=== PATIENT | female | born 1985 | race Caucasian/White ===

== ENCOUNTER 2017-10-27 16:28 | Emergency (ER) | payer SELFPAY ==
--- NOTE | 2017-10-27 18:11 | ER ---
Nurse's Notes [facility] Name: Vonda Sepulveda Age: 32 yrs Sex: Female : 1985 Arrival Date: 10/27/2017 Time: 16:32 Bed DIS2 Private MD: None, None Diagnosis: Pain in left wrist Presentation: 10/27 16:55 Presenting complaint: Patient states: " I'm not sure what I did to my wrist but it's ph been hurting for about 2 weeks." Denies known injury, reports pain in L wrist that radiates to elbow. Transition of care: patient was not received from another setting of care. Onset of symptoms was October 27, 2017. Initial Sepsis Screen: Does the patient meet any 2 criteria? No. Patient's initial sepsis screen is negative. Does the patient have a suspected source of infection? No. Patient's initial sepsis screen is negative. Care prior to arrival: None. 16:55 Method Of Arrival: Ambulatory ph 16:55 Acuity: KALIN 4 ph Historical: - Allergies: 16:57 Phenergan; ph - Home Meds: 16:57 None [Active]; ph - PMHx: 16:57 Seizures; ph - PSHx: 16:57 None; ph - Immunization history:: Adult Immunizations up to date. - Social history:: Smoking status: Patient uses tobacco products, smokes one-half pack cigarettes per day. Screenin:04 Abuse screen: Denies threats or abuse. Denies injuries from another. Nutritional ch screening: No deficits noted. Tuberculosis screening: No symptoms or risk factors identified. Fall Risk None identified. Assessment: 18:04 Pain: Complains of pain in left wrist and left hand Pain currently is 5 out of 10 on a ch pain scale. at worst was 8 out of 10 on a pain scale. Pain began gradually, two weeks ago. Respiratory: Airway is patent Respiratory effort is even, unlabored, Breath sounds are clear bilaterally. Derm: Skin is pink, warm \\T\\ dry. Vital Signs: 16:57 BP 121 / 74; Pulse 93; Resp 18; Temp 97.5; Pulse Ox 98% on R/A; Weight 80.74 kg; Height ph 5 ft. 2 in. (157.48 cm); Pain 6/10; 18:28 BP 118 / 74; Pulse 65; Resp 16; Temp 98.5; Pulse Ox 99% on R/A; Pain 6/10; ch 16:57 Body Mass Index 32.56 (80.74 kg, 157.48 cm) ph ED Course: 16:32 Patient arrived in ED. mr 16:33 None, None is Private Physician. mr 16:40 Cayla Vásquez FNP-C is [facility]. snw 16:40 Kirt Barton MD is Attending Physician. snw 16:56 Triage completed. ph 16:58 Arm band placed on. ph 17:51 Kandi March, RN is Primary Nurse. ch 18:04 No apparent distress. Resting quietly. ch 18:04 Patient has correct armband on for positive identification. Bed in low position. Call light in reach. 18:04 No provider procedures requiring assistance completed. Patient did not have IV access during this emergency room visit. Administered Medications: No medications were administered Outcome: 18:10 Discharge ordered by . snw 18:39 Patient left the ED. Signatures: Kandi March, RN RN Cayla Vásquez FNP-C FNP-Yelena Broussard mr BarronRody, BELLA RN
--- NOTE | 2017-10-27 18:11 | EDPHYS ---
Physician Documentation [facility] Name: Vonda Sepulveda Age: 32 yrs Sex: Female : 1985 Arrival Date: 10/27/2017 Time: 16:32 Bed DIS2 Private MD: None, None ED Physician Kirt Barton HPI: 10/27 18:08 This 32 yrs old Female presents to ER via Ambulatory with complaints of Wrist snw Pain. 18:08 The patient or guardian reports decreased range of motion, pain. The complaints affect snw the left wrist diffusely. Context: The problem was sustained at an unknown location, resulted from an unknown cause. Onset: The symptoms/episode began/occurred suddenly, 2 week(s) ago, and became persistent. Associated signs and symptoms: Pertinent positives:. Compartment Syndrome negative for. It is unknown whether or not the patient has had similar symptoms in the past. It is unknown whether or not the patient has recently seen a physician. using velcro wrist splint. Historical: - Allergies: 16:57 Phenergan; ph - Home Meds: 16:57 None [Active]; ph - PMHx: 16:57 Seizures; ph - PSHx: 16:57 None; ph - Immunization history:: Adult Immunizations up to date. - Social history:: Smoking status: Patient uses tobacco products, smokes one-half pack cigarettes per day. ROS: 18:01 Constitutional: Negative for fever, chills, and weight loss, Eyes: Negative for injury, snw pain, redness, and discharge, ENT: Negative for injury, pain, and discharge, Neck: Negative for injury, pain, and swelling, Cardiovascular: Negative for chest pain, palpitations, and edema, Respiratory: Negative for shortness of breath, cough, wheezing, and pleuritic chest pain, Abdomen/GI: Negative for abdominal pain, nausea, vomiting, diarrhea, and constipation, Back: Negative for injury and pain, Skin: Negative for injury, rash, and discoloration, Neuro: Negative for headache, weakness, numbness, tingling, and seizure. 18:01 MS/extremity: Positive for pain, paresthesias, of the dorsal aspect of left wrist. Exam: 18:00 Constitutional: This is a well developed, well nourished patient who is awake, alert, snw and in no acute distress. Head/Face: Normocephalic, atraumatic. Eyes: Pupils equal round and reactive to light, extra-ocular motions intact. Lids and lashes normal. Conjunctiva and sclera are non-icteric and not injected. Cornea within normal limits. Periorbital areas with no swelling, redness, or edema. ENT: Nares patent. No nasal discharge, no septal abnormalities noted. Tympanic membranes are normal and external auditory canals are clear. Oropharynx without swelling, or masses, exudates, or evidence of obstruction, uvula midline. Mucous membranes moist. Neck: Trachea midline, no thyromegaly or masses palpated, and no cervical lymphadenopathy. Supple, full range of motion without nuchal rigidity, or vertebral point tenderness. No Meningismus. Chest/axilla: Normal chest wall appearance and motion. Nontender with no deformity. No lesions are appreciated. Cardiovascular: Regular rate and rhythm with a normal S1 and S2. No gallops, murmurs, or rubs. Normal PMI, no JVD. No pulse deficits. Respiratory: Lungs have equal breath sounds bilaterally, clear to auscultation and percussion. No rales, rhonchi or wheezes noted. No increased work of breathing, no retractions or nasal flaring. Abdomen/GI: Soft, non-tender, with normal bowel sounds. No distension or tympany. No guarding or rebound. No evidence of tenderness throughout. Back: No spinal tenderness. No costovertebral tenderness. Full range of motion. Skin: Warm, dry with normal turgor. Normal color with no rashes, no lesions, and no evidence of cellulitis. MS/ Extremity: Pulses equal, no cyanosis. Neurovascular intact. Full, normal range of motion, tenderness on rotation of left wrist at [facility] Neuro: Awake and alert, GCS 15, oriented to person, place, time, and situation. Cranial nerves II-XII grossly intact. Motor strength 5/5 in all extremities. Sensory grossly intact. Cerebellar exam normal. Normal gait. Vital Signs: 16:57 BP 121 / 74; Pulse 93; Resp 18; Temp 97.5; Pulse Ox 98% on R/A; Weight 80.74 kg; Height ph 5 ft. 2 in. (157.48 cm); Pain 6/10; 18:28 BP 118 / 74; Pulse 65; Resp 16; Temp 98.5; Pulse Ox 99% on R/A; Pain 6/10; ch 16:57 Body Mass Index 32.56 (80.74 kg, 157.48 cm) ph MDM: 17:33 Patient medically screened. snw 18:56 Data reviewed: vital signs, nurses notes. Data interpreted: Pulse oximetry: on room air snw is 99 %. Interpretation: normal. Counseling: I had a detailed discussion with the patient and/or guardian regarding: the historical points, exam findings, and any diagnostic results supporting the discharge/admit diagnosis, lab results, the need for outpatient follow up, to return to the emergency department if symptoms worsen or persist or if there are any questions or concerns that arise at home. Special discussion: Based on the history and exam findings, there is no indication for further emergent testing or inpatient evaluation. I discussed with the patient/guardian the need to see the orthopedic surgeon for further evaluation of the symptoms. I discussed with the patient/guardian the need to see the primary care provider for further evaluation of the symptoms. Administered Medications: No medications were administered Disposition: 19:06 Co-signature as Attending Physician, Kirt Barton MD. rn Disposition: 10/27/17 18:10 Discharged to Home. Impression: Pain in left wrist. - Condition is Stable. - Discharge Instructions: Arthralgia, Cast or Splint Care, Musculoskeletal Pain, Wrist Pain. - Prescriptions for Diclofenac Sodium 75 mg Oral Tablet Sustained Release - take 1 tablet by ORAL route 2 times per day; 30 tablet. - Medication Reconciliation Form, Thank You Letter, Antibiotic Education, Prescription Opioid Use form. - Follow up: Private Physician; When: 2 - 3 days; Reason: Recheck today's complaints, Continuance of care, Re-evaluation by your physician. Follow up: Emergency Department; When: As needed; Reason: Worsening of condition. Signatures: Kandi March RN RN Cayla Zurita, SYSTEM ANALYST-C SYSTEM ANALYST-Csnw Kirt Barton MD MD rn Hall, Patricia, RN RN ph Corrections: (The following items were deleted from the chart) 18:08 18:00 Constitutional: This is a well developed, well nourished patient who is awake, snw alert, and in no acute distress. Head/Face: Normocephalic, atraumatic. Eyes: Pupils equal round and reactive to light, extra-ocular motions intact. Lids and lashes normal. Conjunctiva and sclera are non-icteric and not injected. Cornea within normal limits. Periorbital areas with no swelling, redness, or edema. ENT: Nares patent. No nasal discharge, no septal abnormalities noted. Tympanic membranes are normal and external auditory canals are clear. Oropharynx without swelling, or masses, exudates, or evidence of obstruction, uvula midline. Mucous membranes moist. Neck: Trachea midline, no thyromegaly or masses palpated, and no cervical lymphadenopathy. Supple, full range of motion without nuchal rigidity, or vertebral point tenderness. No Meningismus. Chest/axilla: Normal chest wall appearance and motion. Nontender with no deformity. No lesions are appreciated. Cardiovascular: Regular rate and rhythm with a normal S1 and S2. No gallops, murmurs, or rubs. Normal PMI, no JVD. No pulse deficits. Respiratory: Lungs have equal breath sounds bilaterally, clear to auscultation and percussion. No rales, rhonchi or wheezes noted. No increased work of breathing, no retractions or nasal flaring. Abdomen/GI: Soft, non-tender, with normal bowel sounds. No distension or tympany. No guarding or rebound. No evidence of tenderness throughout. Back: No spinal tenderness. No costovertebral tenderness. Full range of motion. Skin: Warm, dry with normal turgor. Normal color with no rashes, no lesions, and no evidence of cellulitis. MS/ Extremity: Pulses equal, no cyanosis. Neurovascular intact. Full, normal range of motion. Neuro: Awake and alert, GCS 15, oriented to person, place, time, and situation. Cranial nerves II-XII grossly intact. Motor strength 5/5 in all extremities. Sensory grossly intact. Cerebellar exam normal. Normal gait. snw 18:39 18:10 10/27/2017 18:10 Discharged to Home. Impression: Pain in left wrist. Condition is ch Stable. Forms are Medication Reconciliation Form, Thank You Letter, Antibiotic Education, Prescription Opioid Use. Follow up: Private Physician; When: 2 - 3 days; Reason: Recheck today's complaints, Continuance of care, Re-evaluation by your physician. Follow up: Emergency Department; When: As needed; Reason: Worsening of condition. snw
== END 2017-10-27 18:39 | disposition home or self-care (01) ==
LOC: ER 16:28
DX: M25.532 Pain in left wrist (principal); F17.210 Nicotine dependence, cigarettes, uncomplicated; Z88.8 Allergy status to other drugs, medicaments and biological substances
CPT/HCPCS: 99281

== ENCOUNTER 2017-11-11 02:42 | Emergency (ER) | payer SELFPAY ==
[2017-11-11] MEDS ORDERED: METOCLOPRAMIDE 10 MG/2mL INJ ONE (03:13)
[2017-11-11] MEDS ORDERED: NA CHLORIDE 0.9% 1,000 ML ONE (03:13)
[2017-11-11] MEDS ORDERED: MEPERIDINE HCL 25 MG/0.5 ML ONE (03:13)
[2017-11-11 03:30] LABS: Urine Blood NEGATIVE (NEG); Urine Glucose NEGATIVE (NEG); Urine Protein NEGATIVE (NEG); Urine Specific Gravity 1.015 (1.005-1.030); Urine pH 8.5 (5.0-7.0)
--- NOTE | 2017-11-11 04:50 | EDPHYS ---
Physician Documentation [facility] Name: Vonda Sepulveda Age: 32 yrs Sex: Female : 1985 Arrival Date: 11/11/2017 Time: 02:43 Bed 5 Private MD: None, None ED Physician Kirt Barton HPI: 11/11 04:44 This 32 yrs old Female presents to ER via Ambulatory with complaints of rn Headache, Vomiting. 04:44 The patient complains of pain to the forehead. The patient describes the headache as rn aching. Onset: The symptoms/episode began/occurred just prior to arrival. Associated signs and symptoms: Pertinent positives: Photophobia Pertinent negatives: fever, neck stiffness, rash, vision loss, weakness, vertigo. Severity of symptoms: At its worst the pain was the "worst in my life", in the emergency department the pain is unchanged. The patient has not experienced similar symptoms in the past. 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 No trauma. . 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 - Social history:: Smoking status: Patient uses tobacco products, smokes one pack cigarettes per day. - Ebola Screening: : Patient negative for fever greater than or equal to 101.5 degrees Fahrenheit, and additional compatible Ebola Virus Disease symptoms Patient denies exposure to infectious person Patient denies travel to an Ebola-affected area in the 21 days before illness onset. - Family history:: not pertinent. - Hospitalizations: : No recent hospitalization is reported. ROS: 04:45 Constitutional: Negative for fever, chills, and weight loss, Eyes: Negative for injury, rn pain, redness, and discharge, Neck: Negative for injury, pain, and swelling, Cardiovascular: Negative for chest pain, palpitations, and edema, Respiratory: Negative for shortness of breath, cough, wheezing, and pleuritic chest pain, Abdomen/GI: Negative for abdominal pain, diarrhea, and constipation, MS/Extremity: Negative for injury and deformity, Skin: Negative for injury, rash, and discoloration, Neuro: Negative for weakness, numbness, tingling, and seizure. Exam: 04:45 Constitutional: This is a well developed, well nourished patient who is awake, alert, rn and in no acute distress. Head/Face: Normocephalic, atraumatic. Eyes: Pupils equal round and reactive to light, extra-ocular motions intact. Lids and lashes normal. Conjunctiva and sclera are non-icteric and not injected. Cornea within normal limits. Periorbital areas with no swelling, redness, or edema. Neck: Trachea midline, no thyromegaly or masses palpated, and no cervical lymphadenopathy. Supple, full range of motion without nuchal rigidity, or vertebral point tenderness. No Meningismus. Cardiovascular: Regular rate and rhythm with a normal S1 and S2. No gallops, murmurs, or rubs. Normal PMI, no JVD. No pulse deficits. Respiratory: Lungs have equal breath sounds bilaterally, clear to auscultation and percussion. No rales, rhonchi or wheezes noted. No increased work of breathing, no retractions or nasal flaring. Abdomen/GI: Soft, non-tender, with normal bowel sounds. No distension or tympany. No guarding or rebound. No evidence of tenderness throughout. MS/ Extremity: Pulses equal, no cyanosis. Neurovascular intact. Full, normal range of motion. Equal circumference. Neuro: Awake and alert, GCS 15, oriented to person, place, time, and situation. Cranial nerves II-XII grossly intact. Motor strength 5/5 in all extremities. Sensory grossly intact. Cerebellar exam normal. Normal gait. Vital Signs: 02:59 BP 112 / 56; Pulse 74; Resp 18; Temp 97.2(TE); Pulse Ox 100% on R/A; Weight 80.74 kg fc (R); Height 5 ft. 2 in. (157.48 cm) (R); Pain 10/10; 04:04 BP 99 / 44; Pulse 85; Resp 18; Pulse Ox 100% on R/A; Pain 7/10; ak1 02:59 Body Mass Index 32.56 (80.74 kg, 157.48 cm) [place] Coma Score: 04:45 Eye Response: spontaneous(4). Verbal Response: oriented(5). Motor Response: obeys rn commands(6). Total: 15. MDM: 02:53 Patient medically screened. rn 04:45 Differential diagnosis: hypertensive headache, intracerebral hemorrhage, migraine, rn subarachnoid bleed, tension headache, vasomotor headache. Data reviewed: vital signs, nurses notes, lab test result(s), radiologic studies, CT scan, and as a result, I will discharge patient. Counseling: I had a detailed discussion with the patient and/or guardian regarding: the historical points, exam findings, and any diagnostic results supporting the discharge/admit diagnosis, lab results, radiology results, the need for outpatient follow up, to return to the emergency department if symptoms worsen or persist or if there are any questions or concerns that arise at home. Response to treatment: the patient's symptoms have markedly improved after treatment, sleeping comfortably, and as a result, I will discharge patient. Special discussion: I discussed with the patient/guardian in detail that at this point there is no indication for admission to the hospital. It is understood, however, that if the symptoms persist or worsen the patient needs to return immediately for re-evaluation. ED course: Pt sleeping comfortably, normal ct head within 2 hours of headache onset, no need for emergent LP, no neck stiffness, afebrile, patient asking to go home. . 11/11 03:24 Order name: Urine Dipstick--Ancillary (enter results); Complete Time: 03:49 11/11 03:24 Order name: Urine --Ancillary (enter results); Complete Time: 03:49 11/11 03:05 Order name: CT Head Brain wo Cont rn 11/11 03:05 Order name: Urine Test (obtain specimen); Complete Time: 03:21 rn 11/11 03:06 Order name: IV Start; Complete Time: 03:24 rn Administered Medications: 03:23 Drug: NS 0.9% 1000 ml Route: IV; Rate: 1000 ml; Site: right antecubital; ak1 04:58 Follow up: IV Status: Completed infusion ak1 03:23 Drug: Reglan 10 mg Route: IVP; Site: right antecubital; ak1 03:42 Follow up: Response: No adverse reaction ak1 03:23 Drug: Demerol 25 mg Route: IVP; Site: right antecubital; ak1 03:42 Follow up: Response: No adverse reaction ak1 Disposition: 11/11/17 04:49 Discharged to Home. Impression: Headache. - Condition is Stable. - Discharge Instructions: General Headache Without Cause. - Medication Reconciliation Form, Thank You Letter, Antibiotic Education, Prescription Opioid Use form. - Follow up: Private Physician; When: As needed; Reason: Recheck today's complaints, Re-evaluation by your physician. - Problem is new. - Symptoms have improved. Signatures: Dispatcher [employer] EDLA Hoa Villa RN RN fc Nieto, Roman, MD MD rn Krenek, Amber, RN RN ak1 Corrections: (The following items were deleted from the chart) 04:57 04:49 11/11/2017 04:49 Discharged to Home. Impression: Headache. Condition is Stable. ak1 Forms are Medication Reconciliation Form, Thank You Letter, Antibiotic Education, Prescription Opioid Use. Follow up: Private Physician; When: As needed; Reason: Recheck today's complaints, Re-evaluation by your physician. Problem is new. Symptoms have improved. rn
--- NOTE | 2017-11-11 04:50 | ER ---
Nurse's Notes [facility] Name: Vonda Sepulveda Age: 32 yrs Sex: Female : 1985 Arrival Date: 11/11/2017 Time: 02:43 Bed 5 Private MD: None, None Diagnosis: Headache Presentation: 11/11 02:59 Presenting complaint: Patient states: that 2 hrs ago she started to have headache, fc nausea and vomiting. Also having photophobia. Has had a headache like this before but it was after she had a spinal tap and needed a blood patch. Transition of care: patient was not received from another setting of care. Onset of symptoms was November 11, 2017 at 01:00. Risk Assessment: Do you want to hurt yourself or someone else? Patient reports no desire to harm self or others. Initial Sepsis Screen: Does the patient meet any 2 criteria? No. Patient's initial sepsis screen is negative. Does the patient have a suspected source of infection? No. Patient's initial sepsis screen is negative. Care prior to arrival: None. 02:59 Method Of Arrival: Ambulatory 02:59 Acuity: KALIN 3 fc Triage Assessment: 03:03 Headache History: The patient has had previous headaches and this one is similar to ak1 previous episodes. General: Appears uncomfortable, Behavior is cooperative, crying. Pain: Pain Pain began 2 hours ago. Also complains of nausea, photophobia. EENT: No signs and/or symptoms were reported regarding the EENT system. Neuro: Level of Consciousness is awake, alert, obeys commands, Oriented to person, place, time, situation, Moves all extremities. Gait is steady, Speech is normal. Cardiovascular: No deficits noted. Respiratory: No deficits noted. GI: Reports nausea, vomiting. : No signs and/or symptoms were reported regarding the genitourinary system. Derm: No signs and/or symptoms reported regarding the dermatologic system. Musculoskeletal: No signs and/or symptoms reported regarding the musculoskeletal system. 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 - Social history:: Smoking status: Patient uses tobacco products, smokes one pack cigarettes per day. - Ebola Screening: : Patient negative for fever greater than or equal to 101.5 degrees Fahrenheit, and additional compatible Ebola Virus Disease symptoms Patient denies exposure to infectious person Patient denies travel to an Ebola-affected area in the 21 days before illness onset. - Family history:: not pertinent. - Hospitalizations: : No recent hospitalization is reported. Screenin:02 Abuse screen: Denies threats or abuse. Nutritional screening: No deficits noted. fc Tuberculosis screening: No symptoms or risk factors identified. Fall Risk None identified. Assessment: 03:24 Reassessment: Patient appears in no apparent distress at this time. No changes from ak1 previously documented assessment. Patient is alert, oriented x 3, equal unlabored respirations, skin warm/dry/pink. Pain: Complains of pain in forehead, left base of the skull and right base of the skull. Neuro: Level of Consciousness is awake, alert, obeys commands, Oriented to person, place, time, Linseed Oil Boiler are equal bilaterally Moves all extremities. Gait is steady, Speech is normal, Facial symmetry appears normal. Cardiovascular: No deficits noted. Respiratory: No deficits noted. GI: No signs and/or symptoms were reported involving the gastrointestinal system. : No signs and/or symptoms were reported regarding the genitourinary system. EENT: No signs and/or symptoms were reported regarding the EENT system. Derm: No signs and/or symptoms reported regarding the dermatologic system. Musculoskeletal: No signs and/or symptoms reported regarding the musculoskeletal system. 04:04 Reassessment: Patient appears in no apparent distress at this time. No changes from ak1 previously documented assessment. Patient is alert, oriented x 3, equal unlabored respirations, skin warm/dry/pink. Patient states symptoms have not improved. Vital Signs: 02:59 BP 112 / 56; Pulse 74; Resp 18; Temp 97.2(TE); Pulse Ox 100% on R/A; Weight 80.74 kg fc (R); Height 5 ft. 2 in. (157.48 cm) (R); Pain 10/10; 04:04 BP 99 / 44; Pulse 85; Resp 18; Pulse Ox 100% on R/A; Pain 7/10; ak1 02:59 Body Mass Index 32.56 (80.74 kg, 157.48 cm) Park Coma Score: 04:45 Eye Response: spontaneous(4). Verbal Response: oriented(5). Motor Response: obeys rn commands(6). Total: 15. ED Course: 02:43 Patient arrived in ED. ds1 02:43 None, None is Private Physician. ds1 02:53 Kirt Barton MD is Attending Physician. rn 02:59 Arm band placed on Patient placed in an exam room, on a stretcher. 03:01 Triage completed. fc 03:02 Mattie Hickey RN is Primary Nurse. ak1 03:02 Patient has correct armband on for positive identification. Bed in low position. Call light in reach. Pulse ox on. NIBP on. 03:02 No provider procedures requiring assistance completed. 03:29 Urine collected: clean catch specimen. Inserted saline lock: 20 gauge in right ak1 antecubital area, using aseptic technique. Blood collected. 03:38 CT completed. Patient moved to CT via wheelchair. Patient moved back from CT. cw1 03:38 CT Head Brain wo Cont In Process Unspecified. EDMS 04:57 IV discontinued, intact, bleeding controlled, No redness/swelling at site. Pressure ak1 dressing applied. Administered Medications: 03:23 Drug: NS 0.9% 1000 ml Route: IV; Rate: 1000 ml; Site: right antecubital; ak1 04:58 Follow up: IV Status: Completed infusion ak1 03:23 Drug: Reglan 10 mg Route: IVP; Site: right antecubital; ak1 03:42 Follow up: Response: No adverse reaction ak1 03:23 Drug: Demerol 25 mg Route: IVP; Site: right antecubital; ak1 03:42 Follow up: Response: No adverse reaction ak1 Outcome: 04:42 Discharged to home ambulatory, with family. ak1 04:42 Condition: improved 04:42 Discharge instructions given to patient, Instructed on discharge instructions, follow up and referral plans. Demonstrated understanding of instructions, follow-up care. 04:49 Discharge ordered by . rn 04:57 Patient left the ED. ak1 Signatures: Dispatcher [employer] EDIL Hoa Villa RN RN fc Sanford, Demi [facility] Kirt Barton MD MD rn Woodley, Crystal 1 Ruperto, Mattie, RN RN ak1
--- NOTE | 2017-11-11 09:23 | RAD REPORT ---
EXAM DESCRIPTION: CT - Head Brain Wo Cont - 11/11/2017 6:16 am CLINICAL HISTORY: Headache COMPARISON: None. TECHNIQUE: Computed axial tomography of the head was obtained. IV contrast was not requested. A preliminary report was generated by [email or web address] and reviewed prior to this dictation All CT scans are performed using dose optimization technique as appropriate and may include automated exposure control or mA/KV adjustment according to patient size. FINDINGS: An intracranial bleed is not seen . The ventricles are normal in caliber. No extra-axial fluid collection is noted. Fluid within the sinuses/ mastoids is not seen. IMPRESSION: No acute intracranial abnormality is seen. If patient's symptoms persist MRI of the bra in would be recommended.
== END 2017-11-11 04:57 | disposition home or self-care (01) ==
LOC: ER 02:42
DX: R51 Headache (principal); Z86.73 Personal history of transient ischemic attack (TIA), and cerebral infarction without residual deficits; F17.210 Nicotine dependence, cigarettes, uncomplicated; Z88.8 Allergy status to other drugs, medicaments and biological substances
CPT/HCPCS: 70450; 81003; 81025; 96361; 96374; 96375; 99284; J2175; J2765; J7030

== ENCOUNTER 2017-12-08 23:39 | Emergency (ER) | payer SELFPAY ==
[2017-12-09] MEDS ORDERED: KETOROLAC 30 MG/ML INJ ONE (00:35)
[2017-12-09 00:46] LABS: Urine Blood NEGATIVE (NEG); Urine Glucose NEGATIVE (NEG); Urine Protein NEGATIVE (NEG); Urine Specific Gravity 1.015 (1.005-1.030); Urine pH 7.5 (5.0-7.0)
[2017-12-09 00:55] LABS: Urine Bacteria <20 /HPF (<20); Urine Culture Reflex Order NOT NEEDED; Urine RBC NONE SEEN /HPF (NONE SEEN)
[2017-12-09] MEDS ORDERED: NA CHLORIDE 0.9% 1,000 ML ONE (01:51)
[2017-12-09] MEDS ORDERED: MORPHINE 4 MG/ML SYR ONE (01:51)
[2017-12-09 02:03] LABS: Absolute Lymphocytes (CBC) 3.7 K/uL (0.7-4.9); Absolute Monocytes 0.4 K/uL (0.1-1.3); Absolute Neutrophil 4.5 K/uL (1.8-8.0); Basophils % 1.1 % (0-1.3); Eosinophils % 4.7 % (0-4.4); Hematocrit 38.8 % (36.0-45.0); Lymphocytes % 40.6 % (15.3-44.8); MCH 30.3 pg (27.0-35.0); MCV 89.8 fL (80-100); Monocytes % 4.7 % (3.3-12.3); RBC Red Blood Cell Count 4.32 M/uL (3.86-4.86)
[2017-12-09 02:21] LABS: ALT/SGPT 16 U/L (12-78); AST/SGOT 12 U/L (15-37); Albumin 3.5 g/dL (3.4-5.0); Alkaline Phosphatase 98 U/L (45-117); BUN Blood Urea Nitrogen 6 mg/dL (7-18); Bicarbonate 28 mmol/L (21-32); Bilirubin Direct < 0.1 mg/dL (0-0.2); Bilirubin Total 0.2 mg/dL (0.2-1.0); Glucose Level 87 mg/dL (74-106); Lipase 83 U/L (73-393); Potassium 3.9 mmol/L (3.5-5.1); Protein, Total 6.8 g/dL (6.4-8.2); Sodium Level 143 mmol/L (136-145)
--- NOTE | 2017-12-09 03:15 | EDPHYS ---
Physician Documentation [facility] Name: Vonda Seuplveda Age: 32 yrs Sex: Female : 1985 Arrival Date: 12/08/2017 Time: 23:42 Bed 16 Private MD: ED Physician Kirt Barton HPI: 12/09 01:16 This 32 yrs old Female presents to ER via Ambulatory with complaints of snw Abdominal Pain, Nausea. 01:16 The patient presents with abdominal pain in the left lower quadrant. Onset: The snw symptoms/episode began/occurred gradually, 3 day(s) ago, and became persistent. The symptoms radiate to the left flank. Associated signs and symptoms: Pertinent positives: nausea. The symptoms are described as stabbing, steady. Severity of pain: At its worst the pain was moderate severe. The patient has not experienced similar symptoms in the past. The patient has not recently seen a physician. hx of seizures, last was about 2 months ago. 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 - Social history:: Smoking status: Patient uses tobacco products, smokes one pack cigarettes per day. - Ebola Screening: : Patient negative for fever greater than or equal to 101.5 degrees Fahrenheit, and additional compatible Ebola Virus Disease symptoms Patient denies exposure to infectious person Patient denies travel to an Ebola-affected area in the 21 days before illness onset No symptoms or risks identified at this time. ROS: 01:16 Constitutional: Negative for fever, chills, and weight loss, Eyes: Negative for injury, snw pain, redness, and discharge, ENT: Negative for injury, pain, and discharge, Neck: Negative for injury, pain, and swelling, Cardiovascular: Negative for chest pain, palpitations, and edema, Respiratory: Negative for shortness of breath, cough, wheezing, and pleuritic chest pain, Abdomen/GI: Negative for abdominal pain, nausea, vomiting, diarrhea, and constipation, Back: Negative for injury and pain, : Negative for injury, bleeding, discharge, and swelling, Skin: Negative for injury, rash, and discoloration, Neuro: Negative for headache, weakness, numbness, tingling, and seizure. 01:16 MS/extremity: Positive for pain, of the left lower quadrant. Exam: 01:12 Constitutional: This is a well developed, well nourished patient who is awake, alert, snw and in no acute distress. Head/Face: Normocephalic, atraumatic. Eyes: Pupils equal round and reactive to light, extra-ocular motions intact. Lids and lashes normal. Conjunctiva and sclera are non-icteric and not injected. Cornea within normal limits. Periorbital areas with no swelling, redness, or edema. ENT: Nares patent. No nasal discharge, no septal abnormalities noted. Tympanic membranes are normal and external auditory canals are clear. Oropharynx with no redness, swelling, or masses, exudates, or evidence of obstruction, uvula midline. Mucous membranes moist. Neck: Trachea midline, no thyromegaly or masses palpated, and no cervical lymphadenopathy. Supple, full range of motion without nuchal rigidity, or vertebral point tenderness. No Meningismus. Chest/axilla: Normal chest wall appearance and motion. Nontender with no deformity. No lesions are appreciated. Cardiovascular: Regular rate and rhythm with a normal S1 and S2. No gallops, murmurs, or rubs. Normal PMI, no JVD. No pulse deficits. Respiratory: Lungs have equal breath sounds bilaterally, clear to auscultation and percussion. No rales, rhonchi or wheezes noted. No increased work of breathing, no retractions or nasal flaring. Back: No spinal tenderness. No costovertebral tenderness. Full range of motion. Skin: Warm, dry with normal turgor. Normal color with no rashes, no lesions, and no evidence of cellulitis. MS/ Extremity: Pulses equal, no cyanosis. Neurovascular intact. Full, normal range of motion. Neuro: Awake and alert, GCS 15, oriented to person, place, time, and situation. Cranial nerves II-XII grossly intact. Motor strength 5/5 in all extremities. Sensory grossly intact. Cerebellar exam normal. Normal gait. 01:12 Abdomen/GI: Inspection: abdomen appears normal, Bowel sounds: normal, Palpation: moderate abdominal tenderness, in the posterior aspect of left lateral abdomen and left lower quadrant. Vital Signs: 00:05 BP 108 / 51; Pulse 77; Resp 18; Temp 98.6; Pulse Ox 99% ; Weight 77.11 kg; Height 5 ft. bp 2 in. (157.48 cm); 00:44 BP 101 / 58; Pulse 63; Resp 18; Pulse Ox 98% on R/A; aa1 01:36 BP 97 / 41; Pulse 60; Resp 16; Pulse Ox 100% on R/A; aa1 02:42 BP 90 / 57; Pulse 60; Resp 16; Pulse Ox 98% on R/A; aa1 03:14 BP 92 / 55; Pulse 58; Resp 16; Pulse Ox 99% on R/A; rv 00:05 Body Mass Index 31.09 (77.11 kg, 157.48 cm) bp MDM: 12/08 23:49 Patient medically screened. snw 12/09 03:15 Data reviewed: vital signs, nurses notes. Data interpreted: Pulse oximetry: on room air snw is 98 %. Interpretation: normal. Counseling: I had a detailed discussion with the patient and/or guardian regarding: the historical points, exam findings, and any diagnostic results supporting the discharge/admit diagnosis, lab results, radiology results, the need for outpatient follow up, to return to the emergency department if symptoms worsen or persist or if there are any questions or concerns that arise at home. Special discussion: Based on the patient's Hx, exam, and Dx evaluation, there is no indication for emergent surgery or inpatient Tx. It is understood by the patient/guardian that if the Sx's persist or worsen they need to return immediately for re-evaluation. Based on the history and exam findings, there is no indication for further emergent testing or inpatient evaluation. 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 I discussed with the patient/guardian the need to see the primary care provider for further evaluation of the symptoms. 12/08 23:48 Order name: Urine Culture sn 12/08 23:48 Order name: Urine Microscopic Only; Complete Time: 01:06 snw 12/08 23:49 Order name: Urine Culture EDCA 12/09 00:14 Order name: Urine Dipstick--Ancillary (enter results); Complete Time: 00:50 ms 12/09 00:14 Order name: Urine --Ancillary (enter results); Complete Time: 00:50 ms 12/09 01:43 Order name: Basic Metabolic Panel snw 12/09 00:30 Order name: CT Stone Protocol snw 12/09 01:43 Order name: CBC with Diff snw 12/09 01:43 Order name: Hepatic Function snw 12/09 01:43 Order name: Lipase snw 12/09 01:44 Order name: Basic Metabolic Panel; Complete Time: 02:21 EDMS 12/09 01:44 Order name: CBC with Automated Diff; Complete Time: 02:08 EDMS 12/09 01:44 Order name: Liver (Hepatic) Function; Complete Time: 02:21 EDMS 12/09 01:44 Order name: Lipase; Complete Time: 02:21 EDMS 12/08 23:48 Order name: Urine Test (obtain specimen); Complete Time: 00:12 snw 12/08 23:48 Order name: Urine Dipstick-Ancillary (obtain specimen); Complete Time: 00:12 snw 12/09 01:43 Order name: IV Saline Lock; Complete Time: 01:53 snw 12/09 01:43 Order name: Labs collected and sent; Complete Time: 01:53 snw Administered Medications: 00:37 Drug: TORadol 60 mg Route: IM; Site: left deltoid; rv 01:07 Follow up: Response: No adverse reaction rv 01:53 Drug: NS 0.9% 1000 ml Route: IV; Rate: 1 bolus; Site: left antecubital; rv 01:53 Drug: morphine 4 mg Route: IVP; Site: left antecubital; rv 02:42 Follow up: Response: No adverse reaction; Pain is decreased rv Disposition: 06:47 Co-signature as Attending Physician, Kirt Barton MD. rn Disposition: 12/09/17 03:14 Discharged to Home. Impression: Muscle spasm of back, Lower abdominal pain, unspecified. - Condition is Stable. - Discharge Instructions: Muscle Cramps and Spasms, Pain Without a Known Cause, Abdominal Pain, Women, Back Exercises, [id number], Heat Therapy. - Prescriptions for Diclofenac Sodium 75 mg Oral Tablet Sustained Release - take 1 tablet by ORAL route 2 times per day; 30 tablet. orphenadrine citrate 100 mg Oral Tablet Sustained Release - take 1 tablet by ORAL route 2 times per day As needed; 20 tablet. - Medication Reconciliation Form, Thank You Letter, Antibiotic Education, Prescription Opioid Use, Family Work Release form. - Follow up: Private Physician; When: 2 - 3 days; Reason: Recheck today's complaints, Continuance of care, Re-evaluation by your physician. Follow up: Emergency Department; When: As needed; Reason: Worsening of condition. Signatures: Dispatcher [employer] EDCA Cayla Vásquez, RADIO PRESENTER-C RADIO PRESENTER-Csnw Kirt Barton MD MD rn Peltier, Brian, RN RN Jayy Jones RN RN rv Corrections: (The following items were deleted from the chart) 03:26 03:14 12/09/2017 03:14 Discharged to Home. Impression: Muscle spasm of back; Lower rv abdominal pain, unspecified. Condition is Stable. Forms are Medication Reconciliation Form, Thank You Letter, Antibiotic Education, Prescription Opioid Use. Follow up: Private Physician; When: 2 - 3 days; Reason: Recheck today's complaints, Continuance of care, Re-evaluation by your physician. Follow up: Emergency Department; When: As needed; Reason: Worsening of condition. snw
--- NOTE | 2017-12-09 03:15 | ER ---
Nurse's Notes [facility] Name: Vonda Sepulveda Age: 32 yrs Sex: Female : 1985 Arrival Date: 12/08/2017 Time: 23:42 Bed 16 Private MD: Diagnosis: Muscle spasm of back;Lower abdominal pain, unspecified Presentation: 12/09 00:02 Presenting complaint: Patient states: LEFT ABD PAIN RADIATING TO LEFT FLANK. Transition bp of care: patient was not received from another setting of care. Onset of symptoms was December 06, 2017. Risk Assessment: Do you want to hurt yourself or someone else? Patient reports no desire to harm self or others. Initial Sepsis Screen: Does the patient meet any 2 criteria? No. Patient's initial sepsis screen is negative. Does the patient have a suspected source of infection? No. Patient's initial sepsis screen is negative. Care prior to arrival: None. 00:02 Method Of Arrival: Ambulatory bp 00:02 Acuity: KALIN 3 bp Triage Assessment: 00:04 General: Appears distressed, uncomfortable, Behavior is cooperative, appropriate for bp age, anxious. Pain: Complains of pain in anterior aspect of left lateral abdomen. EENT: No signs and/or symptoms were reported regarding the EENT system. Neuro: Level of Consciousness is awake, alert, obeys commands, Oriented to person, place, time, situation, Appropriate for age. Cardiovascular: No deficits noted. Respiratory: Airway is patent Respiratory effort is even, unlabored, Respiratory pattern is regular, symmetrical. GI: No signs and/or symptoms were reported involving the gastrointestinal system. : Reports urinary frequency. Derm: No deficits noted. Musculoskeletal: Circulation, motion, and sensation intact. Range of motion: intact in all extremities. 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 - Social history:: Smoking status: Patient uses tobacco products, smokes one pack cigarettes per day. - Ebola Screening: : Patient negative for fever greater than or equal to 101.5 degrees Fahrenheit, and additional compatible Ebola Virus Disease symptoms Patient denies exposure to infectious person Patient denies travel to an Ebola-affected area in the 21 days before illness onset No symptoms or risks identified at this time. Screenin:06 Abuse screen: Denies threats or abuse. Denies injuries from another. Nutritional bp screening: No deficits noted. Tuberculosis screening: No symptoms or risk factors identified. Fall Risk None identified. Assessment: 00:06 General: 32YO WF P/W LLQ PAIN RADIATING TO LEFT FLANK WITH POLYURIA x3 DAYS. bp 00:44 Reassessment: Patient appears in no apparent distress at this time. Patient and/or aa1 family updated on plan of care and expected duration. Pain level reassessed. Patient is alert, oriented x 3, equal unlabored respirations, skin warm/dry/pink. Awaiting CT scan. 02:42 Reassessment: Patient appears in no apparent distress at this time. Patient and/or aa1 family updated on plan of care and expected duration. Pain level reassessed. Patient is alert, oriented x 3, equal unlabored respirations, skin warm/dry/pink. Awaiting CT results. 03:25 GI: Bowel sounds present X 4 quads. Abd is soft and non tender X 4 quads. rv Vital Signs: 00:05 BP 108 / 51; Pulse 77; Resp 18; Temp 98.6; Pulse Ox 99% ; Weight 77.11 kg; Height 5 ft. bp 2 in. (157.48 cm); 00:44 BP 101 / 58; Pulse 63; Resp 18; Pulse Ox 98% on R/A; aa1 01:36 BP 97 / 41; Pulse 60; Resp 16; Pulse Ox 100% on R/A; aa1 02:42 BP 90 / 57; Pulse 60; Resp 16; Pulse Ox 98% on R/A; aa1 03:14 BP 92 / 55; Pulse 58; Resp 16; Pulse Ox 99% on R/A; rv 00:05 Body Mass Index 31.09 (77.11 kg, 157.48 cm) bp ED Course: 12/08 23:42 Patient arrived in ED. al2 23:49 [facility]C [facility] snw 23:49 Kirt Barton MD is Attending Physician. snw 12/09 00:02 Frank Perez, RN is Primary Nurse. bp 00:03 Triage completed. bp 00:05 Arm band placed on. bp 00:05 Urine collected: clean catch specimen, clear. aa1 00:06 Patient has correct armband on for positive identification. Bed in low position. Call bp light in reach. Side rails up X2. Adult w/ patient. 00:36 Radiology exam delayed due to test not completed at this time. eh 01:09 CT Stone Protocol In Process Unspecified. EDMS 03:25 No provider procedures requiring assistance completed. IV discontinued, bleeding rv controlled, No redness/swelling at site. Pressure dressing applied. Administered Medications: 00:37 Drug: TORadol 60 mg Route: IM; Site: left deltoid; rv 01:07 Follow up: Response: No adverse reaction rv 01:53 Drug: NS 0.9% 1000 ml Route: IV; Rate: 1 bolus; Site: left antecubital; rv 01:53 Drug: morphine 4 mg Route: IVP; Site: left antecubital; rv 02:42 Follow up: Response: No adverse reaction; Pain is decreased rv Outcome: 03:14 Discharge ordered by MD. underwood 03:25 Discharged to home ambulatory. rv 03:25 Condition: improved 03:25 Discharge instructions given to patient, Instructed on discharge instructions, medication usage. 03:26 Patient left the ED. rv Signatures: Dispatcher [employer] EDMS Rosa Klein, RN RN aa1 Cayla Vásquez, GLOBAL RECRUITER-C GLOBAL RECRUITER-Eddiew Kenan Bond Brian, Brook Hidalgo RN, Ronaldo, RN RN rv
--- NOTE | 2017-12-09 07:53 | RAD REPORT ---
EXAM DESCRIPTION: CT - Stone Protocol - 12/09/2017 6:07 am CLINICAL HISTORY: Abdominal pain. Left flank pain. Surgery 6+ months COMPARISON: None. TECHNIQUE: Computed axial tomography of the abdomen pelvis was obtained without oral or IV contrast. Lack of IV and oral contrast limits evaluation of solid organs, bowel, and vessels. Coronal reformat ramona images were obtained and reviewed. A preliminary report was generated by [employer] and reviewed prior to this dictation All CT scans are performed using dose optimization technique as appropriate and may include automated exposure control or mA/KV adjustment according to patient size. FINDINGS: A 5 millimeter subpleural right middle lobe nodule is present. Image 4. A renal calculus is not seen. An ureteral calculus is not noted. A bladder calculus is not present. The liver, pancreas and adrenals appear grossly normal. Splenic granulomata are present There is no evidence of diverticulitis. The appendix appears normal. A tiny umbilical hernia is seen. Minimal amount of free fluid probably is physiologic IMPRESSION: Negative for a genitourinary calculus 5 millimeter right middle lobe nodule. If patient is high risk per Fleischner guidelines followup CT chest in 12 months is recommended
== END 2017-12-09 03:26 | disposition home or self-care (01) ==
LOC: ER 23:39
DX: M62.830 Muscle spasm of back (principal); F17.210 Nicotine dependence, cigarettes, uncomplicated; Z88.8 Allergy status to other drugs, medicaments and biological substances
CPT/HCPCS: 36415; 74176; 76377; 80048; 80076; 81003; 81015; 81025; 83690; 85025; 87086; 87088; 96372; 96374; 99284; J7030

== ENCOUNTER 2018-01-30 19:13 | Emergency (ER) | payer SELFPAY ==
--- NOTE | 2018-01-30 19:45 | EDPHYS ---
Physician Documentation [facility] Name: Vonda Sepulveda Age: 32 yrs Sex: Female : 1985 Arrival Date: 01/30/2018 Time: 19:17 Bed 23 Private MD: ED Physician Froy Norwood HPI: 01/30 19:38 This 32 yrs old Female presents to ER via Ambulatory with complaints of Back pkl Pain. 19:38 The patient presents with pain that is acute. The symptoms are located in the right pkl lower back. Onset: The symptoms/episode began/occurred 3 day(s) ago. The pain does not radiate. The problem was sustained when lifting furniture. 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 - Social history:: Smoking status: Patient uses tobacco products, smokes one-half pack cigarettes per day. - Ebola Screening: : Patient negative for fever greater than or equal to 101.5 degrees Fahrenheit, and additional compatible Ebola Virus Disease symptoms Patient denies exposure to infectious person Patient denies travel to an Ebola-affected area in the 21 days before illness onset No symptoms or risks identified at this time. ROS: 19:38 Eyes: Negative for injury, pain, redness, and discharge, ENT: Negative for injury, pkl pain, and discharge, Neck: Negative for injury, pain, and swelling, Cardiovascular: Negative for chest pain, palpitations, and edema, Respiratory: Negative for shortness of breath, cough, wheezing, and pleuritic chest pain, Abdomen/GI: Negative for abdominal pain, nausea, vomiting, diarrhea, and constipation. 19:38 Back: Positive for pain with movement, of the right low back. 19:38 : Negative for urinary symptoms. 19:38 MS/extremity: Negative for acute changes. 19:38 Skin: Negative for rash. 19:38 Neuro: Negative for altered mental status. Exam: 19:38 Head/Face: Normocephalic, atraumatic. Eyes: Pupils equal round and reactive to light, pkl extra-ocular motions intact. Lids and lashes normal. Conjunctiva and sclera are non-icteric and not injected. Cornea within normal limits. Periorbital areas with no swelling, redness, or edema. ENT: Nares patent. No nasal discharge, no septal abnormalities noted. Tympanic membranes are normal and external auditory canals are clear. Oropharynx with no redness, swelling, or masses, exudates, or evidence of obstruction, uvula midline. Mucous membranes moist. Neck: Trachea midline, no thyromegaly or masses palpated, and no cervical lymphadenopathy. Supple, full range of motion without nuchal rigidity, or vertebral point tenderness. No Meningismus. Chest/axilla: Normal chest wall appearance and motion. Nontender with no deformity. No lesions are appreciated. Cardiovascular: Regular rate and rhythm with a normal S1 and S2. No gallops, murmurs, or rubs. Normal PMI, no JVD. No pulse deficits. Respiratory: Lungs have equal breath sounds bilaterally, clear to auscultation and percussion. No rales, rhonchi or wheezes noted. No increased work of breathing, no retractions or nasal flaring. Abdomen/GI: Soft, non-tender, with normal bowel sounds. No distension or tympany. No guarding or rebound. No evidence of tenderness throughout. 19:38 Back: pain, that is moderate, of the right low back, Straight leg raises: right lower extremity illicits pain, at 30 degrees. 19:38 : Exam negative for acute changes. 19:38 Musculoskeletal/extremity: Exam is negative for acute changes. 19:38 Skin: Exam negative for rash. 19:38 Neuro: Orientation: is normal, Mentation: is normal, Cranial nerves: grossly normal, Motor: is normal. Vital Signs: 19:21 BP 116 / 48; Pulse 71; Resp 17; Temp 97.9; Pulse Ox 100% on R/A; Weight 77.11 kg; aj Height 5 ft. 2 in. (157.48 cm); 19:40 BP 111 / 59; Pulse 70; Resp 18; Pulse Ox 100% on R/A; tl3 19:21 Body Mass Index 31.09 (77.11 kg, 157.48 cm) aj MDM: 19:24 Patient medically screened. pk 19:43 Data reviewed: vital signs, nurses notes. [facility] 01/30 19:54 Order name: Urine Dipstick--Ancillary (enter results) rg2 01/30 19:54 Order name: Urine --Ancillary (enter results) rg2 01/30 19:54 Order name: Urine Dipstick-Ancillary; Complete Time: 21:35 EDMS 01/30 19:54 Order name: Urine --Ancillary; Complete Time: 21:35 EDMS Administered Medications: 19:50 Drug: TORadol 60 mg Route: IM; Site: right gluteus; mg2 19:59 Follow up: Response: Medication administered at discharge. tl3 Disposition: 01/30/18 19:44 Discharged to Home. Impression: Acute low back strain. Possible prolapsed intervertebral disc. - Condition is Stable. - Prescriptions for Ultracet 37.5- 325 mg Oral Tablet - take 1 tablet by ORAL route every 8 hours - for up to 5 days; do not exceed 8 tablets per day.; 20 tablet. - Medication Reconciliation Form, Thank You Letter, Antibiotic Education, Prescription Opioid Use form. - Follow up: Private Physician; When: 2 - 3 days; Reason: Re-evaluation by your physician. - Problem is new. - Symptoms are unchanged. Signatures: Dispatcher [employer] [facility] Abbey Cardenas RN Froy Blackwell MD MD pkl Wanda Dash RN RN tl3 Kendall Amador RN RN mg2 Corrections: (The following items were deleted from the chart) 19:59 19:44 01/30/2018 19:44 Discharged to Home. Impression: Acute low back strain. Possible tl3 prolapsed intervertebral disc. Condition is Stable. Forms are Medication Reconciliation Form, Thank You Letter, Antibiotic Education, Prescription Opioid Use. Follow up: Private Physician; When: 2 - 3 days; Reason: Re-evaluation by your physician. Problem is new. Symptoms are unchanged. pkl
--- NOTE | 2018-01-30 19:45 | ER ---
Nurse's Notes [facility] Name: Vonda Sepulveda Age: 32 yrs Sex: Female : 1985 Arrival Date: 01/30/2018 Time: 19:17 Bed 23 Private MD: Diagnosis: Acute low back strain. Possible prolapsed intervertebral disc Presentation: 01/30 19:20 Presenting complaint: Patient states: Pain to right lower back for 3 days after moving. aj Ambulated to triage with slow gait. Transition of care: patient was not received from another setting of care. Onset of symptoms was January 28, 2018. Risk Assessment: Do you want to hurt yourself or someone else? Patient reports no desire to harm self or others. Initial Sepsis Screen: Does the patient meet any 2 criteria? No. Patient's initial sepsis screen is negative. Does the patient have a suspected source of infection? No. Patient's initial sepsis screen is negative. Care prior to arrival: None. 19:20 Method Of Arrival: Ambulatory 19:20 Acuity: KALIN 4 aj Triage Assessment: 19:21 General: Appears in no apparent distress. uncomfortable, Behavior is calm, cooperative, aj appropriate for age. Pain: Complains of pain in right low back. Neuro: Level of Consciousness is awake, alert, obeys commands, Oriented to person, place, time, situation, Appropriate for age. Respiratory: Airway is patent Respiratory effort is even, unlabored, Respiratory pattern is regular, symmetrical. Derm: Skin is intact, is healthy with good turgor, Skin is pink, warm \T\ dry. normal. Musculoskeletal: Range of motion: intact in all extremities, Reports pain in right low back. 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 - Social history:: Smoking status: Patient uses tobacco products, smokes one-half pack cigarettes per day. - Ebola Screening: : Patient negative for fever greater than or equal to 101.5 degrees Fahrenheit, and additional compatible Ebola Virus Disease symptoms Patient denies exposure to infectious person Patient denies travel to an Ebola-affected area in the 21 days before illness onset No symptoms or risks identified at this time. Screenin:40 Abuse screen: Denies threats or abuse. Nutritional screening: No deficits noted. tl3 Tuberculosis screening: No symptoms or risk factors identified. Fall Risk None identified. Assessment: 19:40 General: Appears uncomfortable, well groomed, well developed, well nourished, Behavior tl3 is calm, cooperative, appropriate for age. Pain: Complains of pain in back and right low back Pain currently is 8 out of 10 on a pain scale. Neuro: Level of Consciousness is awake, alert, obeys commands, Oriented to person, place, time, situation, Appropriate for age. Cardiovascular: Patient's skin is warm and dry. Respiratory: Airway is patent Respiratory effort is even, unlabored, Respiratory pattern is regular, symmetrical. GI: : No signs and/or symptoms were reported regarding the genitourinary system. EENT: No signs and/or symptoms were reported regarding the EENT system. Derm: No signs and/or symptoms reported regarding the dermatologic system. Musculoskeletal: Reports pain in back and right low back since three days ago, pt was doing some heavy lifting. Vital Signs: 19:21 BP 116 / 48; Pulse 71; Resp 17; Temp 97.9; Pulse Ox 100% on R/A; Weight 77.11 kg; aj Height 5 ft. 2 in. (157.48 cm); 19:40 BP 111 / 59; Pulse 70; Resp 18; Pulse Ox 100% on R/A; tl3 19:21 Body Mass Index 31.09 (77.11 kg, 157.48 cm) aj ED Course: 19:17 Patient arrived in ED. al2 19:20 Triage completed. aj 19:21 Arm band placed on left wrist. Patient placed in an exam room. aj 19:24 Froy Norwood MD is Attending Physician. pkl 19:40 Wanda Dash, RN is Primary Nurse. tl3 19:40 Patient has correct armband on for positive identification. tl3 19:40 initial assessment. tl3 19:52 Urine collected: clean catch specimen, clear, Amount Voided: 30mL. Patient did not have tl3 IV access during this emergency room visit. 19:59 Urine --Ancillary (enter results) Sent. tl3 19:59 Urine Dipstick--Ancillary (enter results) Sent. tl3 Administered Medications: 19:50 Drug: TORadol 60 mg Route: IM; Site: right gluteus; mg2 19:59 Follow up: Response: Medication administered at discharge. tl3 Outcome: 19:44 Discharge ordered by . pkl 19:58 Discharged to home ambulatory. tl3 19:58 Condition: stable 19:58 Discharge instructions given to patient, Instructed on discharge instructions, follow up and referral plans. Demonstrated understanding of instructions, follow-up care, medications, Prescriptions given X 1. 19:59 Patient left the ED. tl3 Signatures: Abbey Cardenas, RN RN Froy Arguelles MD MD pkl Brook Milner Tammy, RN RN tl3 Kendall Amador RN RN mg2
[2018-01-30] MEDS ORDERED: KETOROLAC 30 MG/ML INJ ONE (19:52)
[2018-01-30 19:56] LABS: Urine Blood NEGATIVE (NEG); Urine Glucose NEGATIVE (NEG); Urine Protein NEGATIVE (NEG)
== END 2018-01-30 19:59 | disposition home or self-care (01) ==
LOC: ER 19:13
DX: S39.012A Strain of muscle, fascia and tendon of lower back, initial encounter (principal); X50.0XXA Overexertion from strenuous movement or load, initial encounter; Y93.89 Activity, other specified; Y92.019 Unspecified place in single-family (private) house as the place of occurrence of the external cause; Z88.8 Allergy status to other drugs, medicaments and biological substances; F17.210 Nicotine dependence, cigarettes, uncomplicated; Z86.73 Personal history of transient ischemic attack (TIA), and cerebral infarction without residual deficits; R51 Headache; R56.9 Unspecified convulsions
CPT/HCPCS: 81003; 81025; 96372; 99283

== ENCOUNTER 2018-03-16 21:30 | Emergency (ER) | payer SELFPAY ==
[2018-03-16] MEDS ORDERED: KETOROLAC 30 MG/ML INJ ONE (22:48)
[2018-03-16] MEDS ORDERED: NA CHLORIDE 0.9% 1,000 ML ONE (22:48)
[2018-03-16] MEDS ORDERED: DIPHENHYDRAMINE 25 MG TAB/CAP ONE (22:48)
[2018-03-16] MEDS ORDERED: METOCLOPRAMIDE 10 MG/2mL INJ ONE (22:49)
[2018-03-16 22:58] LABS: Urine Blood TRACE (NEG); Urine Glucose NEGATIVE (NEG); Urine Protein NEGATIVE (NEG)
--- NOTE | 2018-03-16 23:07 | EDPHYS ---
Physician Documentation [facility] Name: Vonda Sepulveda Age: 32 yrs Sex: Female : 1985 Arrival Date: 03/16/2018 Time: 21:30 Bed 26 Private MD: ED Physician Jose E Garcia HPI: 03/16 23:00 This 32 yrs old Female presents to ER via Ambulatory with complaints of pm1 Headache. 23:00 The patient complains of pain to the top of head, forehead and left sikhism. pm1 03/17 03:02 The patient describes the headache as aching, constant. Onset: The symptoms/episode pm1 began/occurred yesterday. Associated signs and symptoms: Pertinent positives: Photophobia Pertinent negatives: altered mental status, fever, neck stiffness, vision changes. Severity of symptoms: in the emergency department the pain is actually worse. Headache History: The patient has had previous headaches and this one is similar to previous episodes. The symptoms are alleviated by nothing. the symptoms are aggravated by lights, noise. The patient has experienced similar episodes in the past, multiple times. 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 - Social history:: Smoking status: Patient uses tobacco products, smokes one pack cigarettes per day. - Ebola Screening: : Patient denies travel to an Ebola-affected area in the 21 days before illness onset. ROS: 03/17 03:02 Constitutional: Negative for fever, chills, and weight loss, Eyes: Negative for injury, pm1 pain, redness, and discharge, ENT: Negative for injury, pain, and discharge, Neck: Negative for injury, pain, and swelling, Cardiovascular: Negative for chest pain, palpitations, and edema, Respiratory: Negative for shortness of breath, cough, wheezing, and pleuritic chest pain, Abdomen/GI: Negative for abdominal pain, nausea, vomiting, diarrhea, and constipation, Back: Negative for injury and pain, MS/Extremity: Negative for injury and deformity, Skin: Negative for injury, rash, and discoloration. Neuro: Positive for headache. Exam: 03:02 Constitutional: This is a well developed, well nourished patient who is awake, alert, pm1 and in no acute distress. Head/Face: Normocephalic, atraumatic. Eyes: Pupils equal round and reactive to light, extra-ocular motions intact. Lids and lashes normal. Conjunctiva and sclera are non-icteric and not injected. Cornea within normal limits. Periorbital areas with no swelling, redness, or edema. ENT: Nares patent. No nasal discharge, no septal abnormalities noted. Tympanic membranes are normal and external auditory canals are clear. Oropharynx with no redness, swelling, or masses, exudates, or evidence of obstruction, uvula midline. Mucous membranes moist. Neck: Trachea midline, no thyromegaly or masses palpated, and no cervical lymphadenopathy. Supple, full range of motion without nuchal rigidity, or vertebral point tenderness. No Meningismus. Chest/axilla: Normal chest wall appearance and motion. Nontender with no deformity. No lesions are appreciated. Cardiovascular: Regular rate and rhythm with a normal S1 and S2. No gallops, murmurs, or rubs. No pulse deficits. Respiratory: Lungs have equal breath sounds bilaterally, clear to auscultation and percussion. No rales, rhonchi or wheezes noted. No increased work of breathing, no retractions or nasal flaring. Abdomen/GI: Soft, non-tender, with normal bowel sounds. No distension or tympany. No guarding or rebound. No evidence of tenderness throughout. Back: No spinal tenderness. No costovertebral tenderness. Full range of motion. Skin: Warm, dry with normal turgor. Normal color with no rashes, no lesions, and no evidence of cellulitis. MS/ Extremity: Pulses equal, no cyanosis. Neurovascular intact. Full, normal range of motion. 03:02 Neuro: Orientation: is normal, Motor: is normal, Gait: is steady, at a normal pace, without difficulty. Vital Signs: 03/16 21:43 BP 105 / 62; Pulse 77; Resp 16; Temp 99.0(O); Pulse Ox 98% on R/A; Weight 77.11 kg (R); aj1 Height 5 ft. 2 in. (157.48 cm) (R); Pain 9/10; 23:01 BP 108 / 76; Pulse 74; Resp 17; Pulse Ox 99% on R/A; kr2 21:43 Body Mass Index 31.09 (77.11 kg, 157.48 cm) aj1 MDM: 21:54 Patient medically screened. pm1 23:05 Data reviewed: vital signs. Data interpreted: Pulse oximetry: on room air is 99 %. pm1 Interpretation: normal. Counseling: I had a detailed discussion with the patient and/or guardian regarding: the historical points, exam findings, and any diagnostic results supporting the discharge/admit diagnosis, lab results, the need for outpatient follow up, a neurologist, to return to the emergency department if symptoms worsen or persist or if there are any questions or concerns that arise at home. 03/16 22:45 Order name: Urine Dipstick--Ancillary (enter results); Complete Time: 23:05 mw2 03/16 22:45 Order name: Urine --Ancillary (enter results); Complete Time: 23:05 2 03/16 22:23 Order name: Urine Dipstick-Ancillary (obtain specimen); Complete Time: 22:49 pm1 03/16 22:23 Order name: Urine Test (obtain specimen); Complete Time: 22:49 pm1 Administered Medications: Discontinued: NS 0.9% 1000 ml IV at 1000 ml once 22:47 Drug: TORadol 30 mg Route: IVP; Site: right antecubital; kr2 23:06 Follow up: Response: No adverse reaction kr2 22:47 Drug: NS 0.9% 1000 ml Route: IV; Rate: 1000 ml; Site: right antecubital; kr2 23:05 Follow up: Response: No adverse reaction; IV Status: Order to discontinue infusion kr2 22:48 Drug: Reglan 10 mg Route: IVP; Site: right antecubital; kr2 23:06 Follow up: Response: No adverse reaction kr2 22:48 Drug: Benadryl 25 mg Route: PO; kr2 23:06 Follow up: Response: No adverse reaction kr2 Disposition: 03/17 04:24 Co-signature as Attending Physician, Jose E Garcia MD I agree with the assessment and wa plan of care. Disposition: 03/16/18 23:06 Discharged to Home. Impression: Headache. - Condition is Stable. - Discharge Instructions: General Headache Without Cause. - Medication Reconciliation Form, Thank You Letter form. - Follow up: Emergency Department; When: As needed; Reason: Worsening of condition. Follow up: Sp Peters MD; When: 2 - 3 days; Reason: Recheck today's complaints, Continuance of care, Re-evaluation by your physician. - Problem is new. - Symptoms have improved. Signatures: Dispatcher [employer] EDMS Dilcia Rodriguez RN RN aj1 Indra Gomes NP [employer] pm1 Jose E Garcia MD MD wa Reaves, Karey, RN RN kr2 Corrections: (The following items were deleted from the chart) 03/16 23:08 23:06 03/16/2018 23:06 Discharged to Home. Impression: Headache. Condition is Stable. kr2 Forms are Medication Reconciliation Form, Thank You Letter, Antibiotic Education, Prescription Opioid Use. Follow up: Emergency Department; When: As needed; Reason: Worsening of condition. Follow up: Sp Peters; When: 2 - 3 days; Reason: Recheck today's complaints, Continuance of care, Re-evaluation by your physician. Problem is new. Symptoms have improved. pm1 03/17 03:03 03/16 23:00 The patient complains of pain to the top of head and forehead, pm1 pm1
--- NOTE | 2018-03-16 23:07 | ER ---
Nurse's Notes [facility] Name: Vonda Sepulveda Age: 32 yrs Sex: Female : 1985 Arrival Date: 03/16/2018 Time: 21:30 Bed 26 Private MD: Diagnosis: Headache Presentation: 03/16 21:39 Presenting complaint: Patient states: She has had a headache on the right side of her aj1 head since this morning, now she's feeling nauseated. Denies vomiting. Reports photosensitivity, sensitivity to sound. Denies injury to head, Denies fever. Reports a history of migraines. States that this headache is more severe than her typical migraines. Transition of care: patient was not received from another setting of care. Onset of symptoms was March 16, 2018. Risk Assessment: Do you want to hurt yourself or someone else? Patient reports no desire to harm self or others. Initial Sepsis Screen: Does the patient meet any 2 criteria? No. Patient's initial sepsis screen is negative. Does the patient have a suspected source of infection? No. Patient's initial sepsis screen is negative. Care prior to arrival: None. 21:39 Method Of Arrival: Ambulatory [facility] 21:39 Acuity: KALIN 3 aj1 Triage Assessment: 21:43 Headache History: The patient has had previous headaches and this one is less severe aj1 than previous episodes. General: Appears in no apparent distress. uncomfortable, Behavior is calm, cooperative, appropriate for age. Pain: Complains of pain in left anabaptist, left side of forehead, left temporal area and left occipital area Pain currently is 9 out of 10 on a pain scale. Pain began 0700 this morning Also complains of decreased appetite, nausea, photophobia. Neuro: Level of Consciousness is awake, alert, obeys commands, Oriented to person, place, time, situation, Moves all extremities. Full function Gait is steady, Speech is normal, Facial symmetry appears normal, Reports headache photophobia. Cardiovascular: Patient's skin is warm and dry. Respiratory: Airway is patent Respiratory effort is even, unlabored, Respiratory pattern is regular, symmetrical. 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 - Social history:: Smoking status: Patient uses tobacco products, smokes one pack cigarettes per day. - Ebola Screening: : Patient denies travel to an Ebola-affected area in the 21 days before illness onset. Screenin:08 Abuse screen: Denies threats or abuse. Denies injuries from another. Nutritional kr2 screening: No deficits noted. Tuberculosis screening: No symptoms or risk factors identified. Fall Risk None identified. Assessment: 22:00 General: Appears in no apparent distress. uncomfortable, well groomed, well developed, kr2 well nourished, Behavior is calm, cooperative, appropriate for age. Pain: Complains of pain in left side of forehead Pain radiates to face Pain currently is 10 out of 10 on a pain scale. Quality of pain is described as aching, throbbing, Is continuous, Alleviated by nothing. Aggravated by increased activity, light, sound. 22:00 Neuro: Level of Consciousness is awake, alert, obeys commands, Oriented to person, kr2 place, time, situation, Appropriate for age Flat Folder are equal bilaterally Moves all extremities. Gait is steady, Speech is normal, Facial symmetry appears normal, Pupils are PERRLA, Intact Reports photophobia. Cardiovascular: Capillary refill < 3 seconds in bilateral fingers Patient's skin is warm and dry. Respiratory: Airway is patent Respiratory effort is even, unlabored, Respiratory pattern is regular, symmetrical. GI: Abdomen is flat, non-distended, Bowel sounds present X 4 quads. Reports nausea, vomiting. EENT: Oral mucosa is moist. Derm: Skin is intact, is healthy with good turgor, Skin is pink, warm \T\ dry. Musculoskeletal: Circulation, motion, and sensation intact. 23:03 Reassessment: Patient states that her mother is in the hospital and her reception clerk kr2 cannot stay with her kids. Provider notified, discharge ordered. Patient elected to leave prior to receiving discharge paperwork. Vital Signs: 21:43 BP 105 / 62; Pulse 77; Resp 16; Temp 99.0(O); Pulse Ox 98% on R/A; Weight 77.11 kg (R); aj1 Height 5 ft. 2 in. (157.48 cm) (R); Pain 9/10; 23:01 BP 108 / 76; Pulse 74; Resp 17; Pulse Ox 99% on R/A; kr2 21:43 Body Mass Index 31.09 (77.11 kg, 157.48 cm) aj1 ED Course: 21:30 Patient arrived in ED. ds1 21:43 Triage completed. aj1 21:43 Arm band placed on. aj1 21:53 Peggy Miller RN is Primary Nurse. kr2 21:54 Indra Gomes NP is PHCP. pm1 21:54 Jose E Garcia MD is Attending Physician. pm1 22:09 Patient has correct armband on for positive identification. Bed in low position. Call kr2 light in reach. Side rails up X 1. Pulse ox on. NIBP on. Door closed. Warm blanket given. Head of bed elevated. 22:30 Inserted saline lock: 22 gauge in right antecubital area, using aseptic technique. kr2 23:02 No provider procedures requiring assistance completed. kr2 23:03 IV discontinued, intact, bleeding controlled, No redness/swelling at site. Pressure kr2 dressing applied. 23:06 Sp Peters MD is Referral Physician. pm1 Administered Medications: Discontinued: NS 0.9% 1000 ml IV at 1000 ml once 22:47 Drug: TORadol 30 mg Route: IVP; Site: right antecubital; kr2 23:06 Follow up: Response: No adverse reaction kr2 22:47 Drug: NS 0.9% 1000 ml Route: IV; Rate: 1000 ml; Site: right antecubital; kr2 23:05 Follow up: Response: No adverse reaction; IV Status: Order to discontinue infusion kr2 22:48 Drug: Reglan 10 mg Route: IVP; Site: right antecubital; kr2 23:06 Follow up: Response: No adverse reaction kr2 22:48 Drug: Benadryl 25 mg Route: PO; kr2 23:06 Follow up: Response: No adverse reaction kr2 Outcome: 23:03 Discharged to home ambulatory. kr2 23:03 Condition: stable 23:03 Discharge instructions given to Patient left prior to receiving discharge instructions and paperwork 23:06 Discharge ordered by . pm1 23:08 Patient left the ED. kr2 Signatures: Dilcia Rodriguez RN RN aj1 Katina Daly ds1 nIdra Gomes NP TIRE REBUILDER pm1 Peggy Miller RN RN kr2 Corrections: (The following items were deleted from the chart) 23: 23:03 Reassessment: Patient states that her mother is in the hospital and her baby kr2 sitter cannot stay with her kids. Provider notified, discharge ordered kr2 : 23:03 Discharge instructions given to patient, Instructed on discharge instructions, kr2 follow up and referral plans. Demonstrated understanding of instructions, follow-up care, kr2
== END 2018-03-16 23:08 | disposition home or self-care (01) ==
LOC: ER 21:30
DX: R51 Headache (principal); F17.210 Nicotine dependence, cigarettes, uncomplicated; Z88.8 Allergy status to other drugs, medicaments and biological substances
CPT/HCPCS: 81003; 81025; 96374; 96375; 99284; J2765; J7030

== ENCOUNTER 2018-06-21 19:02 | Emergency (ER) | payer OTHER, SELFPAY ==
--- OUTSIDE RECORDS SUMMARY | 2018-06-21 19:05 | XMS REPORT ---
:1985 [facility] [address] [place] [address] Dr. Oliveira [address] [place] [id number] Care Team Providers Name Role Phone Unavailable Unavailable Unavailable Problems This patient has no known problems. Allergies, Adverse Reactions, Alerts This patient has no known allergies or adverse reactions. Medications This patient has no known medications.
--- NOTE | 2018-06-21 19:58 | ER ---
Nurse's Notes [facility] Name: Vonda Sepulveda Age: 32 yrs Sex: Female : 1985 Arrival Date: 06/21/2018 Time: 19:07 Bed 4 Private MD: Diagnosis: Sprain of ligaments of cervical spine;Postconcussional syndrome Presentation: 06/21 19:11 Presenting complaint: Patient states: I was at home 2 days ago and jumped up and hit my la1 head on a wood surface and passed out as well as vomited. 911 was called and I went to [facility], they did a CT and said there was so much swelling there could have been a little fracture at c5/c6 but they couldn't be sure, they pain is now worse. Transition of care: patient was not received from another setting of care. Onset of symptoms was June 21, 2018. Risk Assessment: Do you want to hurt yourself or someone else? Patient reports no desire to harm self or others. Initial Sepsis Screen: Does the patient meet any 2 criteria? No. Patient's initial sepsis screen is negative. Does the patient have a suspected source of infection? No. Patient's initial sepsis screen is negative. Care prior to arrival: None. 19:11 Method Of Arrival: Ambulatory la1 19:11 Acuity: KALIN 4 la1 Triage Assessment: 19:40 General: Appears in no apparent distress. Behavior is calm, cooperative. ak1 Historical: - Allergies: 19:11 Phenergan; la1 - PMHx: 19:11 CVA; Headaches; Migraines; PID; Seizures; la1 - Immunization history:: Adult Immunizations up to date. - Social history:: Smoking status: Patient uses tobacco products, smokes one-half pack cigarettes per day. - Ebola Screening: : No symptoms or risks identified at this time. Screenin:38 Abuse screen: Denies threats or abuse. Denies injuries from another. Nutritional ak1 screening: No deficits noted. Tuberculosis screening: No symptoms or risk factors identified. Fall Risk None identified. Assessment: 19:50 General: Appears in no apparent distress. Behavior is appropriate for age. Pain: lp1 Complains of pain in posterior neck Pain currently is 7 out of 10 on a pain scale. Neuro: Level of Consciousness is awake, alert, obeys commands, Oriented to person, place, time, situation. Cardiovascular: No deficits noted. Respiratory: No deficits noted. GI: No deficits noted. : No deficits noted. EENT: No deficits noted. Derm: Skin is pink, warm \T\ dry. Musculoskeletal: Reports pain in neck. Vital Signs: 19:11 BP 107 / 61; Pulse 80; Resp 16; Temp 97.3; Pulse Ox 98% on R/A; Weight 80.74 kg; Height la1 5 ft. 2 in. (157.48 cm); 19:11 Body Mass Index 32.56 (80.74 kg, 157.48 cm) la1 ED Course: 19:07 Patient arrived in ED. es 19:11 Arm band placed on right wrist. la1 19:13 Triage completed. la1 19:24 Michael Yu MD is Attending Physician. 19:37 Mattie Hickey, RN is Primary Nurse. ak1 19:40 Patient has correct armband on for positive identification. Bed in low position. Call ak1 light in reach. Side rails up X 1. 20:08 No provider procedures requiring assistance completed. Patient did not have IV access lp1 during this emergency room visit. Administered Medications: No medications were administered Outcome: 19:57 Discharge ordered by . gs 20:11 Discharged to home ambulatory. lp1 20:11 Condition: good 20:11 Discharge instructions given to patient, Instructed on discharge instructions, follow up and referral plans. medication usage, Demonstrated understanding of instructions, follow-up care, medications, Prescriptions given X 2. 20:11 Patient left the ED. lp1 Signatures: Vero Blackman Laura, RN RN [facility] Mack Bledsoe RN RN [facility] Mattie Hickey RN RN [facility] Michael Yu MD MD
--- NOTE | 2018-06-21 19:58 | EDPHYS ---
Physician Documentation [facility] Name: Vonda Sepulveda Age: 32 yrs Sex: Female : 1985 Arrival Date: 06/21/2018 Time: 19:07 Bed 4 Private MD: ED Physician Michael Yu HPI: 06/21 19:53 This 32 yrs old Female presents to ER via Ambulatory with complaints of Stiff gs Neck, Shoulder Pain. 19:53 The patient or guardian complains of an injury. The symptoms are located at the . gs Onset: The symptoms/episode began/occurred last week. Associated signs and symptoms: Pertinent positives: headache, Pertinent negatives: fever, bladder incontinence, bowel incontinence, nausea, numbness, tingling, weakness. Modifying factors: The symptoms are alleviated by nothing. the symptoms are aggravated by movement. Severity of symptoms: At their worst the symptoms were moderate, in the emergency department the symptoms are unchanged. The patient has not experienced similar symptoms in the past. outside ed ct head c spine, no swelling no acute fracture. having s/s of post concussive syndrome headache nausea.. Historical: - Allergies: 19:11 Phenergan; la1 - PMHx: 19:11 CVA; Headaches; Migraines; PID; Seizures; la1 - Immunization history:: Adult Immunizations up to date. - Social history:: Smoking status: Patient uses tobacco products, smokes one-half pack cigarettes per day. - Ebola Screening: : No symptoms or risks identified at this time. ROS: 19:53 All other systems are negative. gs Exam: 19:53 Head/Face: Normocephalic, atraumatic. Eyes: Pupils equal round and reactive to light, gs extra-ocular motions intact. Lids and lashes normal. Conjunctiva and sclera are non-icteric and not injected. Cornea within normal limits. Periorbital areas with no swelling, redness, or edema. ENT: Nares patent. No nasal discharge, no septal abnormalities noted. Tympanic membranes are normal and external auditory canals are clear. Oropharynx with no redness, swelling, or masses, exudates, or evidence of obstruction, uvula midline. Mucous membranes moist. Chest/axilla: Normal chest wall appearance and motion. Nontender with no deformity. No lesions are appreciated. Cardiovascular: Regular rate and rhythm with a normal S1 and S2. No gallops, murmurs, or rubs. Normal PMI, no JVD. No pulse deficits. Respiratory: Lungs have equal breath sounds bilaterally, clear to auscultation and percussion. No rales, rhonchi or wheezes noted. No increased work of breathing, no retractions or nasal flaring. Abdomen/GI: Soft, non-tender, with normal bowel sounds. No distension or tympany. No guarding or rebound. No evidence of tenderness throughout. Back: No spinal tenderness. No costovertebral tenderness. Full range of motion. Skin: Warm, dry with normal turgor. Normal color with no rashes, no lesions, and no evidence of cellulitis. MS/ Extremity: Pulses equal, no cyanosis. Neurovascular intact. Full, normal range of motion. Neuro: Awake and alert, GCS 15, oriented to person, place, time, and situation. Cranial nerves II-XII grossly intact. Motor strength 5/5 in all extremities. Sensory grossly intact. Cerebellar exam normal. Normal gait. 19:53 Constitutional: The patient appears alert, awake. 19:53 Neck: C-spine: vertebral tenderness, is not appreciated. Vital Signs: 19:11 BP 107 / 61; Pulse 80; Resp 16; Temp 97.3; Pulse Ox 98% on R/A; Weight 80.74 kg; Height la1 5 ft. 2 in. (157.48 cm); 19:11 Body Mass Index 32.56 (80.74 kg, 157.48 cm) la1 MDM: 19:34 Patient medically screened. gs 19:53 Data reviewed: vital signs, nurses notes, old medical records. Response to treatment: gs the patient's symptoms have mildly improved after treatment, and as a result, I will discharge patient. Administered Medications: No medications were administered Disposition: 06/21/18 19:57 Discharged to Home. Impression: Sprain of ligaments of cervical spine, Postconcussional syndrome. - Condition is Stable. - Discharge Instructions: Post-Concussion Syndrome, [id number], Cervical Sprain. - Prescriptions for Tylenol- Codeine #4 300-60 mg Oral Tablet - take 1 tablet by ORAL route every 6 hours As needed; 10 tablet. Zofran 4 mg Oral Tablet - take 1 tablet by ORAL route every 12 hours As needed; 10 tablet. - Medication Reconciliation Form, Thank You Letter, Antibiotic Education, Prescription Opioid Use form. - Follow up: Emergency Department; When: 2 - 3 days; Reason: Re-evaluation by your physician. Signatures: Haylee Swann RN RN lp1 Mcak Bledsoe RN RN la1 Michael Yu MD MD gs Corrections: (The following items were deleted from the chart) 20:11 19:57 06/21/2018 19:57 Discharged to Home. Impression: Sprain of ligaments of cervical lp1 spine; Postconcussional syndrome. Condition is Stable. Forms are Medication Reconciliation Form, Thank You Letter, Antibiotic Education, Prescription Opioid Use. Follow up: Emergency Department; When: 2 - 3 days; Reason: Re-evaluation by your physician. gs
== END 2018-06-21 20:11 | disposition home or self-care (01) ==
LOC: ER 19:02
DX: S13.4XXA Sprain of ligaments of cervical spine, initial encounter (principal); F07.81 Postconcussional syndrome; F17.210 Nicotine dependence, cigarettes, uncomplicated; W22.8XXA Striking against or struck by other objects, initial encounter; Y92.009 Unspecified place in unspecified non-institutional (private) residence as the place of occurrence of the external cause
CPT/HCPCS: 99282